=== PATIENT | female | born 1980 | race Two or more races ===

== ENCOUNTER → 2020-02-16 12:53 | Outpatient (BNVA) | payer OTHER, SELFPAY | PROVIDERS: PCP Nurse Practitioner; Visit Provider Physician Assistant | DX: Z76.89 Persons encountering health services in other specified circumstances (principal) ==

== ENCOUNTER → 2020-02-29 08:09 | Outpatient (BNVA) | payer OTHER, SELFPAY | PROVIDERS: PCP Nurse Practitioner; Visit Provider Surgery | DX: Z76.89 Persons encountering health services in other specified circumstances (principal) ==

== ENCOUNTER 2020-03-01 09:46 | Outpatient (REF) | payer OTHER, SELFPAY ==
--- NOTE | 2020-03-01 09:56 | ECG_ITS ---
Test Reason : CP Blood Pressure : / mmHG Vent. Rate : 071 BPM Atrial Rate : 071 BPM P-R Int : 162 ms QRS Dur : 068 ms QT Int : 372 ms P-R-T Axes : 080 056 031 degrees QTc Int : 404 ms Normal sinus rhythm Low voltage QRS Borderline ECG No previous ECGs available Referred By: Chava Lord Electronically Signed By:CHUCK JOHNSON MD
--- NOTE | 2020-03-01 10:35 | XR_ITS ---
EXAMINATION: XR CHEST CLINICAL INFORMATION: Morbid obesity COMPARISON: None TECHNIQUE: 2 views of the chest were obtained. FINDINGS: No significant abnormality is noted involving the heart, lungs, mediastinum, bony thorax or soft tissues. XR/XR chest 2V IMPRESSION: No acute disease.
[2020-03-01 11:15] LABS: MANUAL DIFF FLAG NO
[2020-03-01 11:34] LABS: Estimated Average Glucose 103 mg/dL; Hemoglobin A1c % 5.2 %
[2020-03-01 11:37] LABS: Basophils Percent Auto 0.3 % (0-2); Eosinophils Absolute Auto 0.1 X10*3/uL (0.0-0.4); Eosinophils Percent Auto 0.9 % (0-4); Hematocrit 43.6 % (37-47); Hemoglobin 14.7 g/dl (12.0-16.0); Imm Gran Abs Auto 0.03 X10*3/uL (0.00-0.03); Imm Gran Pct Auto 0.3 % (0.0-0.4); Lymphocytes Absolute Auto 2.1 X10*3/uL (1.2-4.9); Lymphocytes Percent Auto 23.4 % (20-40); Mean Corpuscular HGB Conc 33.7 g/dl (31.0-35.0); Mean Corpuscular Hemoglobin 31.7 pg (27.0-33.0); Mean Corpuscular Volume 94.2 fL (80-98); Mean Platelet Volume 10.4 fL (9.4-12.3); Monocytes Absolute Auto 0.6 X10*3/uL (0.1-1.2); Monocytes Percent Auto 6.5 % (2-11); Neutrophils Percent Auto 68.6 % (45-73); Platelet Count 315 X10*3/uL (160-400); Red Blood Count 4.63 X10*6/uL (4.20-5.50); Red Cell Distribution Width 12.5 % (11.0-16.0); White Blood Count 8.8 X10*3/uL (4.8-10.8)
[2020-03-01 11:49] LABS: Alanine Aminotransferase 28 U/L (0-31); Albumin Level 4.2 g/dL (3.5-5.0); Alkaline Phosphatase 87 U/L (39-117); Anion Gap 14 (12-20); Aspartate Amino Transferase 20 U/L (5-31); Bilirubin Total 0.6 mg/dL (0.0-1.0); Blood Urea Nitrogen 8 mg/dL (9-16); C Reactive Protein 0.78 mg/dL (< or = 0.50); Carbon Dioxide 26 mmol/L (22-29); Chloride 104 mmol/L (96-108); Cholesterol 244 mg/dL; Estimated Glomerular Filt Rate > 60; Glucose Random 97 mg/dL (60-115); HDL Cholesterol 44 mg/dL; LDL Cholesterol Calculated 175 mg/dl; Sodium 140 mmol/L (135-145); Total Protein 7.2 g/dL (6.5-8.0); Triglycerides 127 mg/dL
[2020-03-01 12:13] LABS: Ferritin 51 ng/mL (10-122); TSH reflex Free T4 1.61 mIU/mL (0.32-4.0); Vitamin D 25-OH Total 6.5 ng/mL (>30)
[2020-03-01 12:24] LABS: Folate 8.3 ng/mL (> or = 4.0); Vitamin B12 266 pg/mL (200-900)
[2020-03-02 06:17] LABS: Insulin Level Total 19.6 uIU/mL
[2020-03-02 17:21] LABS: Calcium (PTHI) 9.1 mg/dL (8.6-10.2); PTHI 73 pg/mL (14-64)
[2020-03-03 20:27] LABS: Zinc 72 mcg/dL (60-130)
[2020-03-05 11:47] LABS: Vitamin B1 8 nmol/L (8-30)
[2020-03-07 13:12] LABS: Vitamin A 52 mcg/dL (38-98)
== END 2020-03-01 09:47 | disposition home or self-care (01) ==
LOC: HO.LAB 09:46
PROVIDERS: PCP Nurse Practitioner; Visit Provider Surgery
DX: R07.9 Chest pain, unspecified (principal); E66.01 Morbid (severe) obesity due to excess calories
CPT/HCPCS: 36415; 71046; 80053; 80061; 82306; 82607; 82728; 82746; 83036; 83525; 83970; 84425; 84443; 84590; 84630; 85025; 86140; 93005

== ENCOUNTER → 2020-03-07 10:19 | Outpatient (BNVA) | payer OTHER, SELFPAY | PROVIDERS: PCP Nurse Practitioner; Visit Provider Physician Assistant ==

== ENCOUNTER 2020-03-13 08:00 | Outpatient (REF) | payer OTHER, SELFPAY ==
--- NOTE | 2020-03-13 08:05 | US_ITS ---
EXAMINATION: US COMPLETE ABDOMEN WITH LIVER ELASTOGRAPHY CLINICAL INFORMATION: Awcvexfa-vc-bezzdx obesity due to excess calories. COMPARISON: None. TECHNIQUE: Real-time imaging of the abdominal viscera. Noninvasive ultrasound liver fibrosis assessment is performed using Greg ElastPQ point quantification shear wave elastography (pSWE) with a 5 MHz transducer. Multiple elastography samples are obtained. FINDINGS: PANCREAS: Normal. The visualized pancreatic head and body are normal in appearance. The remainder of the pancreas is obscured from visualization by the overlying bowel gas. ABDOMINAL AORTA: The proximal, middle, and distal aortic segments are normal in caliber. INFERIOR VENA CAVA: Visualized portions are normal. LIVER: The liver demonstrates normal size, contour and increased echogenicity. No focal lesion or intrahepatic biliary duct dilatation. The right lobe measures 16.4 cm in length. The left lobe measures 10.2 cm in length. There is hepatopedal flow in the main portal vein on Doppler exam. Shear wave elastography provides a median stiffness of 1.27 m/s (reference: normal median stiffness is 0.81 - 1.22 m/s). The IQR/median stiffness to assess sampling precision is 0.19 (reference: optimal IQR/median stiffness is under 0.3). GALLBLADDER: The gallbladder has been surgically removed. COMMON BILE DUCT: Normal in caliber measuring 0.45 cm in diameter. RIGHT KIDNEY: Normal. No hydronephrosis. No renal calculi or focal parenchymal lesions. The kidney measures 11.0 cm in maximum dimension. LEFT KIDNEY: There is normal cortical thickness with hypertrophy, particularly in the midpole. There is an anechoic cyst in the midpole measuring 1.1 x 1.4 x 2.1 cm. The kidney measures 12.4 cm in maximum dimension. SPLEEN: Normal. The spleen measures 10.5 cm in maximum dimension. FREE FLUID: None. US/US abdomen comp w elastography IMPRESSION: Hepatic steatosis without focal lesion. Hypertrophied column of Zechariah with a cyst in the midpole of the left kidney. Cholecystectomy. Elastography: Aelzkh-qs-tqff fibrosis.
--- NOTE | 2020-03-13 08:05 | FL_ITS ---
EXAMINATION: XR GI SERIES CLINICAL INFORMATION: Obesity COMPARISON: None TECHNIQUE: Upper GI was performed using thin and thick barium and effervescent granules FINDINGS: Esophagus is normal-appearing. No hernia or reflux is seen. The stomach and duodenum are normal-appearing. No ulcer, focal thickening, mass or stricture is seen. FLUOROSCOPY TIME: 0.6 minutes DOSE AREA PRODUCT: 7.4 chavez per centimeter squared. Total dose 30 mgy. 19 saved fluoroscopic images. FL/FL upper GI series IMPRESSION: Unremarkable examination.
== END 2020-03-13 08:01 | disposition home or self-care (01) ==
LOC: HO.US 08:00
PROVIDERS: PCP Nurse Practitioner; Visit Provider Surgery
DX: Z01.818 Encounter for other preprocedural examination (principal); E66.01 Morbid (severe) obesity due to excess calories; K21.9 Gastro-esophageal reflux disease without esophagitis
CPT/HCPCS: 74240; 76705; 76981

== ENCOUNTER → 2020-03-14 10:00 | Outpatient (BNVA) | payer OTHER, SELFPAY | PROVIDERS: PCP Nurse Practitioner; Visit Provider Physician Assistant ==

== ENCOUNTER 2020-03-20 07:54 | Outpatient (REF) | payer OTHER, SELFPAY ==
[2020-03-21 10:27] LABS: H Pylori Breath Test NOT DETECTED (NOT DETECTED)
== END 2020-03-20 07:55 | disposition home or self-care (01) ==
LOC: CF 07:54
PROVIDERS: PCP Nurse Practitioner; Visit Provider Surgery
DX: E66.01 Morbid (severe) obesity due to excess calories (principal); Z11.0 Encounter for screening for intestinal infectious diseases
CPT/HCPCS: 83013; 99211

== ENCOUNTER → 2020-03-22 08:18 | Outpatient (BNVA) | payer OTHER, SELFPAY | PROVIDERS: PCP Nurse Practitioner; Visit Provider Surgery ==

== ENCOUNTER → 2020-03-24 08:25 | Outpatient (BNVA) | payer OTHER, SELFPAY | PROVIDERS: PCP Nurse Practitioner; Visit Provider Dietitian, Registered ==

== ENCOUNTER → 2020-04-13 08:14 | Outpatient (BNVA) | payer OTHER, SELFPAY | PROVIDERS: PCP Nurse Practitioner; Visit Provider Dietitian, Registered ==

== ENCOUNTER → 2020-04-19 08:12 | Outpatient (BNVA) | payer OTHER, SELFPAY | PROVIDERS: PCP Nurse Practitioner; Visit Provider Surgery ==

== ENCOUNTER → 2020-05-05 08:48 | Outpatient (BNVA) | payer OTHER, SELFPAY | PROVIDERS: PCP Nurse Practitioner; Visit Provider Physician Assistant ==

== ENCOUNTER → 2020-05-09 13:20 | Outpatient (BNVA) | payer OTHER, SELFPAY | PROVIDERS: PCP Nurse Practitioner; Visit Provider Dietitian, Registered ==

== ENCOUNTER → 2020-05-15 08:12 | Outpatient (BNVA) | payer OTHER, SELFPAY | PROVIDERS: PCP Nurse Practitioner; Visit Provider Surgery ==

== ENCOUNTER → 2020-05-19 10:13 | Outpatient (BNVA) | payer OTHER, SELFPAY | PROVIDERS: PCP Nurse Practitioner; Visit Provider Surgery ==

== ENCOUNTER 2020-05-25 06:05 | Inpatient (IN) | payer OTHER, SELFPAY ==
[2020-05-22 09:15] LABS: MANUAL DIFF FLAG NO
[2020-05-22 09:17] LABS: Basophils Percent Auto 0.4 % (0-2); Eosinophils Absolute Auto 0.1 X10*3/uL (0.0-0.4); Eosinophils Percent Auto 1.3 % (0-4); Hematocrit 43.1 % (37-47); Hemoglobin 14.6 g/dl (12.0-16.0); Imm Gran Abs Auto 0.03 X10*3/uL (0.00-0.03); Imm Gran Pct Auto 0.4 % (0.0-0.4); Lymphocytes Absolute Auto 2.1 X10*3/uL (1.2-4.9); Lymphocytes Percent Auto 27.3 % (20-40); Mean Corpuscular HGB Conc 33.9 g/dl (31.0-35.0); Mean Corpuscular Hemoglobin 31.9 pg (27.0-33.0); Mean Corpuscular Volume 94.3 fL (80-98); Mean Platelet Volume 10.8 fL (9.4-12.3); Monocytes Absolute Auto 0.6 X10*3/uL (0.1-1.2); Monocytes Percent Auto 7.2 % (2-11); Neutrophils Absolute Auto 4.9 X10*3/uL (2.0-8.3); Neutrophils Percent Auto 63.4 % (45-73); Platelet Count 314 X10*3/uL (160-400); Red Blood Count 4.57 X10*6/uL (4.20-5.50); Red Cell Distribution Width 12.2 % (11.0-16.0); White Blood Count 7.7 X10*3/uL (4.8-10.8)
[2020-05-22 09:33] LABS: Prothrombin Time 12.1 SEC (10.8-13.0)
[2020-05-22 09:36] LABS: Partial Thromboplastin Time 41.4 SEC (24.1-38.0)
[2020-05-22 09:48] LABS: Alanine Aminotransferase 15 U/L (0-31); Albumin Level 4.2 g/dL (3.5-5.0); Alkaline Phosphatase 69 U/L (39-117); Anion Gap 10 (12-20); Aspartate Amino Transferase 15 U/L (5-31); Bilirubin Total 0.4 mg/dL (0.0-1.0); Blood Urea Nitrogen 13 mg/dL (9-16); C Reactive Protein 0.21 mg/dL (< or = 0.50); Carbon Dioxide 27 mmol/L (22-29); Chloride 107 mmol/L (96-108); Cholesterol 178 mg/dL; Estimated Glomerular Filt Rate > 60; Glucose Random 96 mg/dL (60-115); HDL Cholesterol 33 mg/dL; LDL Cholesterol Calculated 130 mg/dl; Sodium 140 mmol/L (135-145); Total Protein 6.9 g/dL (6.5-8.0); Triglycerides 79 mg/dL
[2020-05-22 09:55] LABS: Estimated Average Glucose 103 mg/dL; Hemoglobin A1c % 5.2 %
[2020-05-22 10:10] LABS: TSH reflex Free T4 0.94 uIU/mL (0.32-4.0)
[2020-05-23 09:27] LABS: Insulin Level Total 9.3 uIU/mL
[2020-05-23 09:40] VITALS: BMI 39.1
--- NOTE | 2020-05-24 11:50 | HO.ANESPROP2 ---
Documented by User: Riri Diegoney 05/24/20 11:52 HPI - Anesthesia Eval Consult details Narrative: 39yo F for Gastrectomy Sleeve PMFSH Active Problems Active Problems: All Active Problems (Updated 04/10/20 @ 20:05 by Chava Lord MD) Constipation (Acute) Vitamin B12 deficiency (Acute) Vitamin D deficiency (Acute) Morbid obesity (Acute) Past Medical History Medical History Morbid obesity Family History Family History Mother No problems noted. Father Hypertension Diabetes Sister No problems noted. Sister No problems noted. Sister No problems noted. Sister No problems noted. Brother No problems noted. Brother No problems noted. Son No problems noted. Son No problems noted. Daughter No problems noted. 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 If so, by whom?: No Advance Directives: No Advance Directives Information Provided: No Advance Directives on File: No Recently lost weight without trying: No Meds Allergies Allergy/AdvReac Type Severity Reaction Status Date / Time No Known Allergies Allergy Verified 05/15/20 09:24 Exam Exam Date and Time: May 24, 2020 1150 Height,Weight and Vital Signs: Height 5 ft 2 in Weight 97.069 kg Pertinent Lab Results Pertinent Lab Results: Laboratory Tests 05/22/20 05/22/20 05/22/20 08:32 08:32 08:32 WBC RBC Hgb Hct MCV MCH MCHC RDW Plt Count MPV Immature Gran % (Auto) Neut % (Auto) Lymph % (Auto) [place] % (Auto) Eos % (Auto) Baso % (Auto) Lymph # (Auto) [place] # (Auto) Eos # (Auto) Baso # (Auto) Abs Immat Gran (auto) Absolute Neuts (auto) Absolute Nucleated RBC Nucleated RBC % (auto) PT INR APTT Sodium 140 Potassium 4.0 Chloride 107 Carbon Dioxide 27 Anion Gap 10 L BUN 13 D Creatinine 0.76 Estim Creat Clear Calc TNP Estimated GFR > 60 Random Glucose 96 Estimat Average Glucose 103 Hemoglobin A1c % 5.2 Total Insulin 9.3 Calcium 9.0 Total Bilirubin 0.4 AST 15 ALT 15 Alkaline Phosphatase 69 D C-Reactive Protein 0.21 Total Protein 6.9 Albumin 4.2 Triglycerides 79 Cholesterol 178 D LDL Cholesterol, Calc 130 HDL Cholesterol 33 D TSH 0.94 Blood Type Antibody Screen 05/22/20 05/22/20 05/22/20 08:37 08:37 08:37 WBC 7.7 RBC 4.57 Hgb 14.6 Hct 43.1 MCV 94.3 MCH 31.9 MCHC 33.9 RDW 12.2 Plt Count 314 MPV 10.8 Immature Gran % (Auto) 0.4 Neut % (Auto) 63.4 Lymph % (Auto) 27.3 [place] % (Auto) 7.2 Eos % (Auto) 1.3 Baso % (Auto) 0.4 Lymph # (Auto) 2.1 [place] # (Auto) 0.6 Eos # (Auto) 0.1 Baso # (Auto) 0.0 Abs Immat Gran (auto) 0.03 Absolute Neuts (auto) 4.9 Absolute Nucleated RBC 0.000 Nucleated RBC % (auto) 0.0 PT 12.1 INR 1.0 APTT 41.4 H Sodium Potassium Chloride Carbon Dioxide Anion Gap BUN Creatinine Estim Creat Clear Calc Estimated GFR Random Glucose Estimat Average Glucose Hemoglobin A1c % Total Insulin Calcium Total Bilirubin AST ALT Alkaline Phosphatase C-Reactive Protein Total Protein Albumin Triglycerides Cholesterol LDL Cholesterol, Calc HDL Cholesterol TSH Blood Type A Positive Antibody Screen NEGATIVE Narrative Narrative: EKG Vent. Rate : 071 BPM Atrial Rate : 071 BPM P-R Int : 162 ms QRS Dur : 068 ms QT Int : 372 ms P-R-T Axes : 080 056 031 degrees QTc Int : 404 ms Normal sinus rhythm Low voltage QRS Borderline ECG No previous ECGs available Assessment and Plan Assessment Anesthesia Assessment: Chart Reviewed Documented by User: Brent Lorenz 05/25/20 07:13 PMFSH Past Medical History Medical History Morbid obesity Family History Family History Mother No problems noted. Father Hypertension Diabetes Sister No problems noted. Sister No problems noted. Sister No problems noted. Sister No problems noted. Brother No problems noted. Brother No problems noted. Son No problems noted. Son No problems noted. Daughter No problems noted. 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 If so, by whom?: No Advance Directives: No Advance Directives Information Provided: No Advance Directives on File: No Recently lost weight without trying: No Meds Allergies Allergy/AdvReac Type Severity Reaction Status Date / Time No Known Allergies Allergy Verified 05/15/20 09:24 Exam Airway Mallampati Class: III TM Dist: >3cm Neck ROM: Full Loose/Missing/Broken Teeth: No Heart: rrr+[id number] Lungs: cta b/l Assessment and Plan Assessment Anesthesia Assessment: Anesthesia Plan Discussed, PAT Visit and Chart Reviewed Final Anesthetic Review NPO: Yes ASA Class: II Final Preanesthetic Review: No Changes in Pt Med Stat, Meds/Allgs Chart Reviewed, Consent Obtained/Reviewed and Anes Risks/Benef Reviewed Patient Risk: Intermediate Procedure Risk: Low Assessment/Block/Sedation in SS: Assess/Block/Sedation-SS Anesthetic Plan Anesthetic Plan: GA and Agree w/ Assess. and Plan Disposition: Standard PACU
--- NOTE | 2020-05-24 18:09 | MHC.SHP ---
Pre-Procedural Eval Section A The patient is an INPATIENT: Yes The History & Physical has been completed within 30 days and I have reviewed it.: Yes Section B Chief Complaint: Morbid severe obesity Details of Present Illness: Obesity Relevant Family History (Specify if Yes): No Relevant Social History: None Present Medications: see Short Stay Collaborative assessment Medical History: No relevant PMH History of Previous Operations: No relevant previous surgery Allergies: Allergies Allergy/AdvReac Type Severity Reaction Status Date / Time No Known Allergies Allergy Verified 05/15/20 09:24 Review of Systems Sugical H&P ROS: Negative: Constitution, Cardiovascular, Respiratory, Neurological, Psychiatric, Hem-Onc, Allergic/Immunologic, Gastrointestinal, Genitourinary, Musculoskeletal, Integumentary, Endocrine and Eyes/Ears/Nose/Throat Exam Surgical H&P Exam: Normal: HEENT, Normal: Heart, Normal: Lungs, Normal: Extremities, Normal: Abdomen, Normal: Skin and Normal: Neurological Plan Diagnosis/Plan: Unchanged I have reviewed the history and physical and performed a pertinent physical examination on my patient. No changes have occurred unless specified.
[2020-05-25] VITALS (12 sets, daily range): BP systolic 107–147; BP diastolic 54–83; PULSE 68–86; RESP 12–20; TEMP 36–36.6; O2SAT 92–100
[2020-05-25 06:46] LABS: COVID-19 Test Negative (Negative)
[2020-05-25] MEDS: Lactated Ringers 1,000 ML 999 ML IV (07:10)
[2020-05-25] MEDS: Lactated Ringers 1,000 ML 100 ML IVCONT (07:27)
--- NOTE | 2020-05-25 10:01 | P.DS_ITS ---
DS: Providers Provider Date of Service: 05/26/20 Date of admission: 05/25/20 06:05 Primary care physician: Cassandra Schmidt NP DS: Medications Discharge Medications Home Medications: Previous Rx's Medication Instructions Recorded cholecalciferol (vitamin D3) 125 125 mcg PO DAILY #30 cap 03/06/20 mcg (5,000 unit) capsule mecobalamin (vitamin B12) 1,000 1,000 mcg SUBLINGUAL DAILY #30 tab 03/06/20 mcg disintegrating tablet,sublingual docusate sodium 100 mg capsule 100 mg PO DAILY #30 cap 04/10/20 ondansetron HCl 4 mg tablet 4 mg PO Q12H #20 tab 05/15/20 pantoprazole 40 mg tablet,delayed 40 mg PO DAILY #30 tab 05/15/20 release polyethylene glycol 3350 17 gram 17 g PO DAILY #14 ea 05/15/20 oral powder packet sucralfate 100 mg/mL oral 10 ml PO BID #400 ml 05/15/20 suspension DS: Summary Time Spent with Patient Time attestation: ADMITTING DIAGNOSIS: morbid obesity, vitamin deficiencies DISCHARGE DIAGNOSIS: same, s/p laparoscopic sleeve gastrectomy PAST SURGICAL HISTORY: lap cholecystectomy PROCEDURE: upper endoscopy, laparoscopic sleeve gastrectomy and gastropexy DISCHARGE SUMMARY: History of Present Illness: The patient is a 39 year-old woman with a BMI of 42.6 kg/m2 and associated co- morbidities as described above. The patient had extensive work-up,lost 23.9 lbs preoperatively and was electively scheduled for laparoscopic, possible open sleeve gastrectomy and gastropexy. Risks and complications of the surgery were discussed with the patient in advance, particularly the possibility of , pulmonary embolism, anastomotic leak, bleeding, bowel injury, GERD, cardiac, renal or pulmonary complications. The patient understood all the risks and was in agreement with the surgical plan. Hospital Course: The patient underwent an uneventful laparoscopic sleeve gastrectomy with gastropexy on the day of admission. Postoperatively, the patient was transferred to the surgical floor. The patient was on IV Acetaminophen and IV dilaudid for pain control. Patient was started on bariatric phase 1 diet POD #0. On postoperative day one, the patient was feeling well without nausea, vomiting, fevers, or tachycardia. The patient had some mild incisional pain. The abdomen was soft. On the morning of postoperative day one, the patient was continued on 1 ounce of water or ice every half hour. During the first day, the patient did fairly well, having some incisional pain, but able to ambulate adequately and to tolerate liquids well. Since the patient is doing well, we decided that the patient was ready to be discharged. The patient was given instructions to follow-up with me next week and to call my office for any fever over 101, persistent abdominal pain, nausea, vomiting, GERD, symptoms of DVT such as calf tenderness, or leg swelling, or pulmonary embolism such as chest pain or shortness of breath. The patient was also instructed to drink 40-60 ounces of liquids per day using the 1-ounce cups. The patient was given prescription for Tylenol for pain, Zofran prn for nausea, and pantoprazole and carafate. The patient was encouraged to ambulate and use the incentive spirometer. The patient was allowed to shower, but no baths, and encouraged to stay active at home. All of these instructions were given to the patient personally. All questions were answered and the patient understood all instructions, the instructions were also given to the patient in print. Total time spent providing and/or coordinating discharge services: 15 Discharge coordination time: Less than 30 minutes Physical Exam Vital Signs: Vital Signs: Last Vital Signs Temp 97.5 F 05/25/20 09:56 Pulse 78 05/25/20 09:56 Resp 12 05/25/20 09:56 BP 110/55 L 05/25/20 09:56 Pulse Ox 100 05/25/20 09:56 Body Mass Index 39.1 DS: Data Data Completed and Pending Pending studies at discharge: Pending at discharge 05/25/20 09:11 Surgical [PTH] Routine Labs on day of discharge: Laboratory Results - last 24 hr 05/25/20 06:13 COVID-19 ([facility]) Negative COVID-19 Clin Com See Note Discharge Plan Discharge Anticipated Discharge Date/Time: 05/26/20 10:57 Patient Disposition: Home, Self-Care Referrals: Cassandra Schmidt NP [Primary Care Provider] - Discharge Medications: Continued docusate sodium [Colace] 100 mg capsule 100 mg PO DAILY Qty: 30 RF: 2 ondansetron HCl [Zofran] 4 mg tablet 4 mg PO Q12H PRN (Reason: Nausea And Vomiting) RF: 0 pantoprazole 40 mg tablet,delayed release (DR/EC) 40 mg PO DAILY Qty: 30 RF: 2 sucralfate 100 mg/mL suspension 10 ml PO BID Qty: 400 RF: 2 Discontinued cholecalciferol (vitamin D3) 125 mcg (5,000 unit) capsule 125 mcg PO DAILY Qty: 30 RF: 2 mecobalamin (vitamin B12) 1,000 mcg tablet,disintegrating 1,000 mcg sublingual DAILY Qty: 30 RF: 2 Discharge Orders: Discharge Order (Routine); Ordered 05/26/20 Ordered By: Chava Lord Diet: other Activity on Discharge: No heavy lifting Stand Alone Forms: Patient Portal Discharge page Activity Restrictions/Additional Instructions: No tub baths, sex or returning to work until discussed at first post op appointment. No exercise, alcohol, tobacco or illegal drug use. Continue to use incentive spirometer hourly while awake. Walk in home for 5- 10 minutes every 2 hours during the first week. Continue phase 1 diet today and start phase 2 diet tomorrow morning. Follow all instructions in the bariatric handbook and call with any questions. Care Plan Goals: weight loss Health Concerns: morbid obesity Plan of Treatment: see discharge instructions Assessment: Pt is stable POD#1 from laparoscopic sleeve gastrectomy and is being discharged home. Discharge Date/Time: 05/26/20 13:48
--- NOTE | 2020-05-25 10:12 | PM.OP ---
Brief Operative Note Date of Service: 05/25/20 Pre-op diagnosis: Morbid obesity with comorbidities (see below) Post-op diagnosis: same Procedure: INITIAL PATIENT BMI ON PRESENTATION AT OUR OFFICE: 44.3 kg/m2 LAST BMI BEFORE SURGERY: 39.8 kg/m2 COMORBIDITIES: liver steatosis, liver fibrosis The patient participated in an intensive weekly lifestyle intervention and exercise program during which the patient has lost between the initial office visit and the last preoperative visit 24.7lbs, or 10.2% of initial actual body weight. The patient met the BMI-criteria for bariatric surgery based on the BMI on initial presentation. The patient should not be penalized for achieving such weight loss because it is not sustainable long-term without surgical intervention and it was achieved in preparation for bariatric surgery under my direction and based on my published research ([email or web address] and [email or web address]) that a 10% preoperative weight loss improves long-term weight loss after surgery and reduces perioperative complications. Insurance carriers such as [employer] [place] have endorsed my recommendations and have included in their policies criteria to include a 10% preoperative weight loss requirement. PROCEDURE: Esophago-gastroscopy, laparoscopic repair of incarcerated diaphragmatic hernia, laparoscopic lysis of adhesions, laparoscopic sleeve gastrectomy and laparoscopic gastropexy INDICATIONS: This is a 39 year-old female who was electively scheduled for laparoscopic, possibly open sleeve gastrectomy. The risks and complications of the procedure were discussed with the patient in advance, particularly the possibility of ; pulmonary embolism; staple line leak; bleeding; GERD; cardiac, pulmonary, or renal complications; as well as long-term problems such as insufficient weight loss, vitamin deficiency, strictures, or ulcers. The patient understood all the risks, and was in agreement to proceed with surgery. DESCRIPTION OF PROCEDURE: After informed consent was obtained from the patient, the patient was given preoperative antibiotics, and was transferred to the operating room. After successful induction of general anesthesia, pneumatic compressive devices were placed on both lower extremities. An upper endoscopy was performed next. The oropharynx and esophagus appeared to be within normal limits. There was a diaphragmatic hernia present of moderate size consistent with the findings of the preoperative upper GI. The stomach was entered. Then after all fluid and air were suctioned and the stomach was fully decompressed, the scope was withdrawn and secured in the mid esophagus. The patient was then prepped and draped in the usual sterile manner, and abdominal access was established at the right upper quadrant with the Kathie technique. A 12 mm blunt port was inserted, and the abdomen was insufflated with CO2 to a pressure of 15 mmHg. Under direct visualization, additional ports were placed, specifically two 5 mm Versi-step ports to the left upper quadrant, and a 5 mm Versi-Step port to the right upper quadrant. 1% lidocaine plan was used to infiltrate all port sites as well as all fascia defects. Using the EndoClose suture passer device, I placed a #1 Polysorb tie across the falciform ligament in order to retract it up against the abdominal wall and prevent injury of the ligament with our instruments during the procedure. Following that, the patient was placed in a steep reverse Trendelenburg position. An additional 5 mm port was placed to the right flank for the Mediflex retractor that was used to retract the left lobe of the liver. The gastro-esophageal fat pad was opened with the ultrasonic device (Thunderbeat, Olympus) and the anterior esophagus and hiatus were exposed. The angle of His was opened with the ultrasonic device the fundus of the stomach from any diaphragmatic and splenic attachments. I then opened the gastrocolic ligament between the transverse colon and the greater curvature of the stomach with the ultrasonic device to enter the lesser sac and facilitate the ligation of the short gastric vessels. I started at a mid-point along the greater curvature and using the Thunderbeat, all short gastric vessels were divided all the way to the angle of His until the left jessica was completely dissected at its entirety. I then divided the gastro-colic ligament distally to a distance of about 3-4 cm proximal to the esophagus. The stomach was then divided transversely with one Endo BRENDA-45 purple, one BRENDA-45 orange and three BRENDA-60 articulating orange loads using the AEON stapler and loads. Every effort was made that the gastric sleeve had a tubular shape and an even caliber throughout. Once the sleeve resection was completed, the staple line of the gastric sleeve was reinforced with Hemoclips. The resected stomach was retrieved without difficulty from the Kathie port. A gastropexy was then performed in order to prevent postoperative GERD and partial gastric volvulus. Several interrupted 2.0 Surgidac sutures were placed between the sleeve's staple line and the previously divided greater omentum and gastro-colic ligament using the Endo-Stitch device. An upper endoscopy was performed. There was no narrowing at the GE junction. The scope was easily advanced all the way to the pylorus which was clearly visualized. There was no narrowing anywhere and the sleeve's caliber was even throughout. The sleeve's staple line was inspected and there was no evidence of ischemia, bleeding or dehiscence. At that point the gastroscope was withdrawn from the patient?s mouth while we were decompressing the bowel and the stomach from any remaining air. I looked into the lesser sac to see how the sleeve was situating and it was situating well. There was no bleeding from the staple line, spleen, or short gastric vessels. The Mediflex retractor was removed, and the undersurface of the liver was inspected and there was no bleeding. The patient was placed in supine position. I closed the fascial defect of the 12 mm port site with a figure of eight #1 Polysorb suture. Then 100 cc 0.25 % Marcaine plain with 10 mg of Dexamethasone were used to infiltrate the fascial closure as well as all skin incisions. At this point, the abdomen was deflated, all ports were removed under direct vision, and no bleeding was noted from any of the port sites. The skin incisions were irrigated with saline and were closed with 4-0 absorbable monofilament sutures. Steri-Strips and OpSites were used to cover all incisions. The patient was extubated and was transferred in stable condition to the recovery room for further care. I was present and performed all mack parts of the procedure. Tao Paredes was the marketing support assistant. There were no residents to assist with this case. Marcus Lord MD, PhD, FACS Surgeon: Chava Lord MD Anesthesia: GETA, local and other (TAP block) Computer Training Specialist: Aditi Paredes Estimated blood loss (mL): 10 IV fluids (mL): 2,500 Urine output (mL): 0 (No Bray to record) Pathology: other (Stomach) Condition: stable Disposition: PACU
[2020-05-25] MEDS: Famotidine/PF 20 MG/2 ML VIAL IVPUSH ×2 (10:16→20:18)
--- NOTE | 2020-05-25 10:19 | P.PNGS_ITS ---
Subjective Subjective Date of Service: 05/26/20 Interval history: Patient has mild incisional pain. Was able to ambulate and use the incentive spirometer. Had some nausea and vomiting Physical Exam Vital Signs: Vital Signs: Last Vital Signs Temp 97.5 F 05/25/20 09:57 Pulse 86 05/25/20 10:11 Resp 18 05/25/20 10:11 BP 115/61 05/25/20 10:11 Pulse Ox 99 05/25/20 10:11 Body Mass Index 39.1 GI: Inspection: Yes normal to inspection and Yes incision (dry, clean and intact) Extrem: Right lower extremity: normal to inspection (no calf tenderness) Left lower extremity: normal to inspection (no calf tenderness) Progress Note: A&P Assessment and plan (1) Obesity: Status: Acute (2) BMI 39.0-39.9,adult: Status: Acute (3) S/P laparoscopic sleeve gastrectomy: Status: Acute Assessment and Plan: 39 year old Female was admitted 05/25/2020 with morbid obesity and comorbidities. Problem 1: s/p laparoscopic sleeve gastrectomy, gastropexy and lysis of adhesions Status: Doing well Plan: Check am labs, If OK, will begin phase 1 bariatric diet and re- assess later (4) Steatosis, liver: Status: Acute (5) Liver fibrosis: Status: Acute Fall Risk Details Current Medications: Current Medications Generic Name Dose Route Start Last Admin Trade Name Freq PRN Reason Stop Dose Admin Famotidine 20 mg 05/25/20 10:03 05/25/20 10:16 Famotidine/Pf 20 Mg/2 Ml Vial IVPUSH 20 mg BID HANG Administration Fentanyl 50 mcg 05/25/20 07:13 Fentanyl Citrate/Pf 100 Mcg/2 Ml Vial IVPUSH Q5M PRN Pain, Moderate (Pain Scale 4-6 Hydromorphone HCl 0.5 mg 05/25/20 07:13 Hydromorphone Hcl 0.5 Mg/0.5 Ml Syringe IVPUSH Q5M PRN Pain, Severe (Pain Scale 7-10) Lactated Ringer's 1,000 mls @ 100 mls/hr 05/25/20 06:15 05/25/20 07:27 Lr IVCONT 100 mls/hr .Q10H HANG Administration Promethazine HCl 12.5 mg/ 50.5 mls @ 202 mls/hr 05/25/20 07:13 Sodium Chloride IV ONCE PRN Nausea and Vomiting Ondansetron HCl 4 mg 05/25/20 07:13 Ondansetron Hcl 4 Mg/2 Ml Vial IVPUSH ONCE PRN Nausea and Vomiting Oxycodone HCl 10 mg 05/25/20 07:13 Oxycodone Hcl Immed Release 5 Mg Tablet PO ONCE PRN Pain, Mild (Pain Scale 1-3) Time Spent With Patient Time: Total time spent is greater than 50% in coordination of care (as documented) at patient's floor/unit and/or counseling patient: Time with patient: less than 15 minutes
[2020-05-25 10:30] LABS: Hematocrit 41.9 % (37-47); Hemoglobin 14.1 g/dl (12.0-16.0)
[2020-05-25 11:00] LABS: Anion Gap 17 (12-20); Blood Urea Nitrogen 8 mg/dL (9-16); Calcium 8.4 mg/dL (8.4-10.2); Carbon Dioxide 19 mmol/L (22-29); Chloride 107 mmol/L (96-108); Creatinine Clr Calc Pharmacy 115.7; Estimated Glomerular Filt Rate > 60; Glucose Random 112 mg/dL (60-115); Potassium 3.9 mmol/L (3.3-5.1); Sodium 139 mmol/L (135-145)
[2020-05-25] MEDS: Lactated Ringers 1,000 ML 125 ML IVCONT ×2 (11:33→20:18)
[2020-05-25] MEDS: ceFAZolin Sodium/Dextrose,Iso 2 GM/50 ML PIGGYBACK IV (14:02)
[2020-05-25] MEDS: ondansetron HCL 4 MG/2 ML VIAL IVPUSH (18:22)
[2020-05-25] MEDS: HYDROmorphone HCl 0.5 MG/0.5 ML SYRINGE 0.25 MG IVPUSH (20:19)
[2020-05-26] MEDS: ondansetron HCL 4 MG/2 ML VIAL IVPUSH ×2 (02:13→10:36)
[2020-05-26] MEDS: HYDROmorphone HCl 0.5 MG/0.5 ML SYRINGE 0.25 MG IVPUSH (02:13)
[2020-05-26] MEDS: Lactated Ringers 1,000 ML 125 ML IVCONT ×2 (02:16→10:31)
[2020-05-26 04:00] VITALS: BP 128/70; PULSE 72; RESP 16; TEMP 37.2; O2SAT 97
[2020-05-26 05:32] LABS: MANUAL DIFF FLAG NO
[2020-05-26 05:41] LABS: Basophils Percent Auto 0.1 % (0-2); Hematocrit 39.9 % (37-47); Hemoglobin 13.6 g/dl (12.0-16.0); Imm Gran Abs Auto 0.05 X10*3/uL (0.00-0.03); Imm Gran Pct Auto 0.4 % (0.0-0.4); Lymphocytes Percent Auto 7.8 % (20-40); Mean Corpuscular HGB Conc 34.1 g/dl (31.0-35.0); Mean Corpuscular Hemoglobin 31.9 pg (27.0-33.0); Mean Corpuscular Volume 93.4 fL (80-98); Monocytes Absolute Auto 0.8 X10*3/uL (0.1-1.2); Monocytes Percent Auto 6.2 % (2-11); Neutrophils Absolute Auto 10.9 X10*3/uL (2.0-8.3); Neutrophils Percent Auto 85.5 % (45-73); Platelet Count 318 X10*3/uL (160-400); Red Blood Count 4.27 X10*6/uL (4.20-5.50); Red Cell Distribution Width 12.1 % (11.0-16.0); White Blood Count 12.8 X10*3/uL (4.8-10.8)
[2020-05-26 06:07] LABS: Anion Gap 17 (12-20); Blood Urea Nitrogen 4 mg/dL (9-16); Calcium 8.6 mg/dL (8.4-10.2); Carbon Dioxide 17 mmol/L (22-29); Chloride 109 mmol/L (96-108); Creatinine Clr Calc Pharmacy 126.3; Estimated Glomerular Filt Rate > 60; Glucose Random 98 mg/dL (60-115); Potassium 3.8 mmol/L (3.3-5.1); Sodium 139 mmol/L (135-145)
[2020-05-26 07:13] VITALS: O2SAT 98
[2020-05-26 08:00] VITALS: BP 140/75; PULSE 88; RESP 16; TEMP 36.1; O2SAT 98
--- NOTE | 2020-05-26 08:26 | MHC.CM.PN ---
PATIENT LIVES WITH SPOUSE AND FAMILY. SHE IS INDEPENDENT WITH HER ADLS. NO DME OR VNA SERVICES. SHE IS HOPING TO RETURN HOME TODAY WITH NO NEED FOR SERVICES. SHE REPORTS THAT SURGEON WILL RETURN THIS AFTERNOON TO ASSESS HER ABILITY TO RETURN HOME OR REMAIN ANOTHER NIGHT. CASE MANAGEMENT FOLLOWING IN THE EVENT THAT PATIENT HAS ANY DC NEEDS. SPOUSE WILL PROVIDE TRANSPORT HOME.
[2020-05-26] MEDS: Famotidine/PF 20 MG/2 ML VIAL IVPUSH (09:07)
--- NOTE | 2020-05-26 10:13 | HO.POSTANES ---
Post Anesthesia Evaluation Post Anesthesia Evaluation Vital Signs: Vital Signs Temp Pulse Resp BP Pulse Ox 05/26/20 08:00 96.9 F 88 16 140/75 H 98 05/26/20 07:13 98 05/26/20 04:00 99 F 72 16 128/70 97 05/25/20 23:18 97 F 78 18 147/80 H 96 Anesthesia: General Endotracheal-GETA Mental Status: Awake Pain Control: Satisfactory Nausea/Vomiting: None Hydration: Adequate Anesthesia-Related Issues: No Anes. Related Issues
[2020-05-26 11:22] VITALS: BP 143/83; PULSE 103; RESP 18; TEMP 36.4; O2SAT 98
--- NOTE | 2020-05-26 12:10 | MHC.CM.PN ---
PATIENT IS DISCHARGED HOME WITH NO SERVICES. RN AWARE OF PLAN.
== END 2020-05-26 13:48 | disposition home or self-care (01) | DRG 403 ==
LOC: HO.SSSA 09:58 → HO.S3 10:35
PROVIDERS: Physician Assistant; Admitting Provider Surgery; PCP Nurse Practitioner; Visit Provider Surgery
PROC: 0DB64Z3 Excision of Stomach, Percutaneous Endoscopic Approach, Vertical (ICD-10-PCS; CPT 43845; principal; 2020-05-25 07:30)
DX: E66.01 Morbid (severe) obesity due to excess calories (principal); K74.00 Hepatic fibrosis, unspecified; K44.0 Diaphragmatic hernia with obstruction, without gangrene; K76.0 Fatty (change of) liver, not elsewhere classified; Z20.822 Contact with and (suspected) exposure to COVID-19; Z68.39 Body mass index [BMI] 39.0-39.9, adult; Z79.899 Other long term (current) drug therapy
CPT/HCPCS: 36415; 80048; 80053; 80061; 83036; 83525; 84443; 85014; 85018; 85025; 85610; 85730; 86140; 86850; 86900; 87635; 88307; 88342; 99024; A4649; J0131; J0690; J1100; J1170; J2250; J2405; J3010

== ENCOUNTER → 2020-05-31 08:11 | Outpatient (BNVA) | payer OTHER, SELFPAY | PROVIDERS: PCP Nurse Practitioner; Visit Provider Surgery | DX: E66.9 Obesity, unspecified (principal); Z68.37 Body mass index [BMI] 37.0-37.9, adult | CPT/HCPCS: 99212 ==

== ENCOUNTER → 2020-06-30 08:05 | Outpatient (BNVA) | payer OTHER, SELFPAY | PROVIDERS: PCP Nurse Practitioner; Visit Provider Surgery | DX: E66.9 Obesity, unspecified (principal); Z68.36 Body mass index [BMI] 36.0-36.9, adult | CPT/HCPCS: 99212 ==

== ENCOUNTER → 2020-07-14 11:04 | Outpatient (BNVA) | payer OTHER, SELFPAY | PROVIDERS: PCP Nurse Practitioner; Visit Provider Physician Assistant ==

== ENCOUNTER 2021-04-28 17:17 | Emergency (ER) | payer OTHER, SELFPAY ==
--- NOTE | ~2021-04-28 | XR_ITS ---
EXAMINATION: XR HIP, RIGHT CLINICAL INFORMATION: Pain COMPARISON: None TECHNIQUE: Frontal view the pelvis with coned frontal and frog-leg lateral views of the right hip. FINDINGS: Bones are normal anatomic alignment. Both femoral heads are well-seated within their respected acetabula. No cortical disruption or trabecular irregularity to suggest underlying fracture. Minimal degenerative changes with small osteophyte formation both hip joints. Sacroiliac joints grossly unremarkable. Unremarkable bowel gas pattern. XR/XR hip RT w PEL1V IMPRESSION: No acute bony abnormality. Minimal degenerative change.
[2021-04-28 17:26] VITALS: BP 137/81; PULSE 79; RESP 18; TEMP 36.6; O2SAT 99; BMI 31.2
--- NOTE | 2021-04-28 19:18 | ED.LOWEXIN ---
HPI - Extremity Injury (Lower) General Chief Complaint: Extremity Injury, Lower Stated Complaint: severe hip pain Time Seen by Provider: 04/28/21 18:56 Source: patient Mode of arrival: ambulatory Limitations: no limitations History of Present Illness HPI Narrative: 40-year-old female here with reports of right hip pain for 1 month worsened today with waking with no known injury or trauma. No radiation of pain. No associated numbness, tingling, weakness of the distal extremity. Patient has not tried any [id number] medications for this pain. Related Data Home Medications Medication Instructions Recorded Confirmed ondansetron HCl 4 mg tablet 4 mg PO Q12H PRN 05/25/20 05/25/20 (Zofran) Previous Rx's Medication Instructions Recorded docusate sodium 100 mg capsule 100 mg PO DAILY #30 cap 04/10/20 (Colace) pantoprazole 40 mg tablet,delayed 40 mg PO DAILY #30 tab 05/15/20 release sucralfate 100 mg/mL oral 10 ml PO BID #400 ml 05/15/20 suspension cholecalciferol (vitamin D3) 50 50 mcg PO DAILY #20 cap 06/07/ mcg (2,000 unit) capsule docusate sodium 100 mg capsule 100 mg PO DAILY #30 cap 07/15/20 (Colace) acetaminophen 325 mg tablet 650 mg PO Q4H PRN #20 tab 04/28/21 (Tylenol) cyclobenzaprine 10 mg tablet 10 mg PO TID PRN #10 tab 04/28/21 Allergies Allergy/AdvReac Type Severity Reaction Status Date / Time No Known Allergies Allergy Verified 05/31/20 08:25 Review of Systems Review of Systems: Yes all other systems are reviewed and are negative Constitutional: Constitutional: Reports no additional constitutional complaints, Denies body ache(s), Denies chills, Denies fever(s), Denies headache(s) and Denies weakness Eyes: Eyes: Reports no additional eye complaints and Denies change in vision ENT: Reports system reviewed and no additional complaints, except as documented, Denies dizziness, Denies headache(s), Denies nasal congestion, Denies nasal discharge and Denies neck pain Cardiovascular: Cardiovascular: Reports no additional cardiovascular complaints, Denies chest pain, Denies leg edema and Denies dyspnea Respiratory: Respiratory: Reports no additional respiratory complaints, Denies cough and Denies dyspnea Gastrointestinal: Gastrointestinal: Reports no additional gastrointestinal complaints, Denies abdominal pain, Denies diarrhea, Denies nausea and Denies vomiting Genitourinary: Genitourinary: Reports no additional female genitourinary complaints and Denies urinary incontinence Musculoskeletal: Musculoskeletal: Reports no additional musculoskeletal complaints, Denies back pain, Reports arthralgias, Denies joint swelling, Denies neck pain, Denies numbness and Denies tingling Integumentary/Breasts: Skin/Breast: Reports system reviewed and no additional complaints, except as docu and Denies rash Neurologic: Reports system reviewed and no additional complaints, except as documented, Denies Abnormal speech present, Denies dizziness, Denies headache(s), Denies numbness, Denies tingling and Denies weakness PMFSH Past Medical History Attestation statement: The following information was validated with the patient. Source: old records reviewed and nursing notes reviewed Medical History Constipation Morbid obesity Surgical History History of sleeve gastrectomy Hx of cholecystectomy Hx of tubal ligation Family History Family History Mother No problems noted. Father Hypertension Diabetes Sister No problems noted. Sister No problems noted. Sister No problems noted. Sister No problems noted. Brother No problems noted. Brother No problems noted. Son No problems noted. Son No problems noted. Daughter No problems noted. 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) Do you presently have visiting nurse or other home services: No Alcohol intake: never Advance Directives: No Advance Directives Information Provided: No Patient : No service: No Current occupational status: unemployed Physical Exam Vital Signs: Vital Signs: Last Vital Signs Temp 98 F 04/28/21 17:26 Pulse 79 04/28/21 17:26 Resp 18 04/28/21 17:26 BP 137/81 04/28/21 17:26 Pulse Ox 99 04/28/21 17:26 BMI result Body Mass Index 31.2 Const: General: cooperative, healthy appearing, comfortable and no acute distress Orientation/consciousness: patient oriented x3 Limitations: no limitations HENMT: Head: Yes normal to inspection Ears: hearing grossly normal bilaterally General nose exam: Normal external nose present Face and sinus: Yes normal facial exam Mouth: Normal oral and palatal mucosa present Throat: Yes posterior oropharynx normal Eyes: General: appearance normal, both eyes and all related structures Pupils: Equal, round and reactive pupils present Neck: Neck: Yes normal visual inspection Chest: Chest palpation & inspection: normal inspection of the chest Resp: Effort & Inspection: normal respiratory effort Auscultation: clear to auscultation bilaterally Cardio: Rate: regular rate Rhythm: regular rhythm Peripheral pulses: Peripheral pulses 2+ throughout GI: Inspection: Yes normal to inspection Palpation (GI): Soft to palpation and nontender Auscultation: normal bowel sounds Back/Spine/Pelvis: Thoracic/Lumbar Spine: thoracic and lumbar spine normal to inspection Skin: General skin exam: no rashes or lesions noted Neuro: General: patient oriented x3, no focal motor deficits and normal sensation to monofilament Cranial nerves: Yes Equal, round and reactive pupils present Cognition (Neuro): normal cognition Speech: No Abnormal speech present Gait exam (Neuro): Normal gait present Motor exam (neuro): 5/5 motor strength present throughout Extrem: Other: Tenderness over the right lateral hip that is worsened with palpation, abduction, adduction, rotation of the hip. No obvious rotation, deformity or shortening of the hip. General: Yes normal to inspection Course Course Course Narrative: 40-year-old female here with atraumatic right hip pain for 1 month. Will check x-rays, provide analgesia and reassess 2000- x-ray show degenerative changes of the hip. patient is feeling improved after receiving some analgesia here. Will discharge her home with some medications for pain, supportive care at home and follow-up with PCP. Reviewed worrisome signs and symptoms when to return to the emergency department. Comfortable discharge home. MDM - Extremity Injury (Lower) Medical Records Attestation: I reviewed the patient's medical records. Lab Data Attestation: I reviewed the patient's lab results. Imaging Data hip xray/pelvis: Attestation: I personally reviewed and interpreted this imaging study as follows: Radiologist's impression: [address] [address] XRay Report Signed Patient: Nadine Jay MR#: [id number] : 1980 Acct:[id number] Age/Sex: 40 / F ADM Date: 04/28/21 Loc: HO.ED Attending Dr: Ordering Physician: Tonia Siddiqi NP Date of Service: 04/28/21 Procedure(s): XR hip RT w PEL1V Accession Number(s): [id number] cc: Tonia Siddiqi NP~ EXAMINATION: XR HIP, RIGHT CLINICAL INFORMATION: Pain COMPARISON: None TECHNIQUE: Frontal view the pelvis with coned frontal and frog-leg lateral views of the right hip. FINDINGS: Bones are normal anatomic alignment. Both femoral heads are well-seated within their respected acetabula. No cortical disruption or trabecular irregularity to suggest underlying fracture. Minimal degenerative changes with small osteophyte formation both hip joints. Sacroiliac joints grossly unremarkable. Unremarkable bowel gas pattern.? XR/XR hip RT w PEL1V IMPRESSION: No acute bony abnormality. Minimal degenerative change. ? Discharge Plan Discharge Clinical Impression: Osteoarthritis Patient Disposition: Home, Self-Care Instructions: Osteoarthritis (DC) Additional Instructions: heat or ice gentle stretching follow-up with your primary care doctor in 1 week for persistent symptoms Prescriptions: New acetaminophen [Tylenol] 325 mg tablet 650 mg PO Q4H PRN (Reason: pain) Qty: 20 0RF cyclobenzaprine 10 mg tablet 10 mg PO TID PRN (Reason: muscle spasm) Qty: 10 0RF No Action docusate sodium [Colace] 100 mg capsule 100 mg PO DAILY Qty: 30 2RF cholecalciferol (vitamin D3) 50 mcg (2,000 unit) capsule 50 mcg PO DAILY Qty: 20 11RF docusate sodium [Colace] 100 mg capsule 100 mg PO DAILY Qty: 30 2RF ondansetron HCl [Zofran] 4 mg tablet 4 mg PO Q12H PRN (Reason: Nausea And Vomiting) 0RF pantoprazole 40 mg tablet,delayed release (DR/EC) 40 mg PO DAILY Qty: 30 2RF sucralfate 100 mg/mL suspension 10 ml PO BID Qty: 400 2RF Referrals: Cassandra Schmidt NP [Primary Care Provider] - 1 week Print Language: Northern Irish
[2021-04-28] MEDS: Ketorolac Tromethamine 30 MG/ML VIAL IM (19:30)
== END 2021-04-28 20:40 | disposition home or self-care (01) ==
PROVIDERS: Emergency Provider Emergency Medicine Emergency Medical Services; PCP Nurse Practitioner
DX: M16.11 Unilateral primary osteoarthritis, right hip (principal); M25.551 Pain in right hip
CPT/HCPCS: 73502; 96372; 99283; 99284; J1885

== ENCOUNTER 2021-12-17 10:29 | Emergency (ER) | payer OTHER, SELFPAY ==
--- NOTE | ~2021-12-17 | XR_ITS ---
EXAMINATION: XR HIP, LEFT CLINICAL INFORMATION: Pain with week. COMPARISON: None TECHNIQUE: AP upright, AP supine, and frog-leg lateral views of the left hip. FINDINGS: Bones and soft tissues appear unremarkable. No fracture identified. Alignment is anatomic. Hip joint space is maintained. XR/XR hip LT w PEL1V IMPRESSION: Normal plain film examination of the left hip.
[2021-12-17 10:32] VITALS: BP 142/80; PULSE 76; RESP 18; TEMP 36.6; O2SAT 97; BMI 32.9
[2021-12-17 11:01] LABS: UPreg QC Valid YES; Urine Pregnancy NEGATIVE (NEGATIVE)
== END 2021-12-17 12:28 | disposition left against medical advice (07) ==
PROVIDERS: Emergency Provider Emergency Medicine; PCP Nurse Practitioner
DX: M79.605 Pain in left leg (principal); M25.552 Pain in left hip
CPT/HCPCS: 73502; 81025; 99282; 99283

== ENCOUNTER 2023-10-03 21:10 | Emergency (ER) | payer MEDICAID, SELFPAY ==
--- NOTE | 2023-10-03 | ECG_ITS ---
Test Reason : PALPATATIONS Blood Pressure : / mmHG Vent. Rate : 064 BPM Atrial Rate : 064 BPM P-R Int : 156 ms QRS Dur : 066 ms QT Int : 388 ms P-R-T Axes : 060 014 010 degrees QTc Int : 400 ms Normal sinus rhythm Normal ECG When compared with ECG of 01-MAR-2020 09:58, No significant change was found Referred By: Generic ED Physician Electronically Signed By:PELON HARDY
--- NOTE | ~2023-10-03 | XR_ITS ---
EXAMINATION: XR CHEST CLINICAL INFORMATION: Palpitations. Arm pain. COMPARISON: Chest radiograph dated 03/01/2020. TECHNIQUE: Frontal view of the chest was obtained. FINDINGS: The heart is normal in size. The lungs are clear. Pleural spaces are clear. No pneumothorax. No acute osseous abnormality. Surgical clips overlie the abdomen. XR/XR chest 1V IMPRESSION: No acute cardiopulmonary disease.
[2023-10-03 21:33] VITALS: BP 120/78; PULSE 69; RESP 14; TEMP 36.3; O2SAT 98; BMI 32.9
[2023-10-03 22:03] LABS: MANUAL DIFF FLAG NO
[2023-10-03 22:04] LABS: Basophils Percent Auto 0.2 % (0-2); Eosinophils Percent Auto 0.3 % (0-4); Hematocrit 39.3 % (37.0-47.0); Hemoglobin 13.8 g/dl (12.0-16.0); Imm Gran Abs Auto 0.03 X10*3/uL (0.00-0.03); Imm Gran Pct Auto 0.2 % (0.0-0.4); Lymphocytes Absolute Auto 1.5 X10*3/uL (1.2-4.9); Lymphocytes Percent Auto 11.4 % (20-40); Mean Corpuscular HGB Conc 35.1 g/dl (31.0-35.0); Mean Corpuscular Hemoglobin 31.6 pg (27.0-33.0); Mean Corpuscular Volume 89.9 fL (80.0-98.0); Mean Platelet Volume 9.9 fL (9.4-12.3); Monocytes Absolute Auto 0.7 X10*3/uL (0.1-1.2); Monocytes Percent Auto 5.6 % (2-11); Neutrophils Absolute Auto 10.8 x10*3/uL (2.0-8.3); Neutrophils Percent Auto 82.3 % (45-73); Platelet Count 298 X10*3/uL (160-400); Red Blood Count 4.37 X10*6/uL (4.20-5.50); Red Cell Distribution Width 12.7 % (11.0-16.0); White Blood Count 13.2 X10*3/uL (4.8-10.8)
[2023-10-03 22:11] LABS: INTERNATIONAL NORM RATIO 0.9 (0.9-1.1); Prothrombin Time 10.7 SEC (11.1-13.3)
[2023-10-03 22:14] LABS: Partial Thromboplastin Time 32.3 SEC (26.0-36.8)
[2023-10-03 22:20] LABS: Anion Gap 15 (12-20); Blood Urea Nitrogen 9 mg/dL (9-16); Calcium 9.4 mg/dL (8.4-10.2); Carbon Dioxide 19 mmol/L (22-29); Chloride 111 mmol/L (96-108); Creatinine Clr Calc Pharmacy 102.6; Estimated Glomerular Filt Rate > 60; Glucose Random 97 mg/dL (60-115); Potassium 3.6 mmol/L (3.3-5.1); Sodium 141 mmol/L (135-145)
[2023-10-03 22:28] LABS: Troponin-I High Sensitivity 5.6 ng/L (<3.5-17.0)
[2023-10-03 23:34] VITALS: BP 106/65; PULSE 56; RESP 16; TEMP 36.7; O2SAT 97
--- NOTE | 2023-10-03 23:35 | MHC.EDTECH ---
This pct assumed care of patient ,vitals taken and pt was hooked up to groundwater monitoring technician ,call nava within pt reach
--- NOTE | 2023-10-04 00:19 | ED.ARRPALP ---
HPI - Arrhythmia/Palpitations General Chief Complaint: Arrhythmia/Palpitations Stated Complaint: palpitations Time Seen by Provider: 10/04/23 00:14 Source: patient Mode of arrival: ambulatory Limitations: no limitations History of Present Illness ED Provider: akilah CRUZ narrative: Patient no significant past medical history was in nondenominational and noticed heart racing which lasted for about 5-7 minutes fell lightheaded with that and tingling in the left arm on arrival patient was in sinus rhythm no arrhythmias noticed during stay in the ER no history of similar palpitation in the past no history of significant caffeine use no syncope Related Data Home Medications ?Medication ?Instructions ?Recorded ?Confirmed ondansetron HCl 4 mg tablet 4 mg PO Q12H PRN Nausea And 05/25/20 05/25/20 (Zofran) Vomiting Previous Rx's ?Medication ?Instructions ?Recorded docusate sodium 100 mg capsule 100 mg PO DAILY #30 caps 04/10/20 (Colace) pantoprazole 40 mg tablet,delayed 40 mg PO DAILY #30 tabs 05/15/20 release sucralfate 100 mg/mL oral 10 ml PO BID #400 mL 05/15/20 suspension cholecalciferol (vitamin D3) 50 50 mcg PO DAILY #20 caps 06/07/20 mcg (2,000 unit) capsule docusate sodium 100 mg capsule 100 mg PO DAILY #30 caps 07/15/20 (Colace) acetaminophen 325 mg tablet 650 mg (2 x 325 mg) PO Q4H PRN 04/28/21 (Tylenol) pain #20 tabs cyclobenzaprine 10 mg tablet 10 mg PO TID PRN muscle spasm #10 04/28/21 tabs Allergies Allergy/AdvReac Type Severity Reaction Status Date / Time No Known Allergies Allergy Verified 10/03/23 21:37 Review of Systems Review of Systems: Yes all other systems are reviewed and are negative [facility] Past Medical History Medical History Constipation Morbid obesity Surgical History History of sleeve gastrectomy Hx of cholecystectomy Hx of tubal ligation Family History Family History Mother No problems noted. Father Hypertension Diabetes Sister No problems noted. Sister No problems noted. Sister No problems noted. Sister No problems noted. Brother No problems noted. Brother No problems noted. Son No problems noted. Son No problems noted. Daughter No problems noted. 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 Oriented X3. No acute distress. Eyes: PERRLA, No Nystagmus ENT: Pharynx normal. Oral Mucosa moist Neck: Normal inspection. Neck supple. CVS: Normal heart rate and rhythm. Pulses normal. Respiratory: No respiratory distress. Equal air entry bilateral, no wheezing/rales/rhonchi Abdomen: Soft and nontender. Bowel sounds are present, no mass palpable, no CVA tenderness Skin: Skin warm and dry. Normal skin color. Normal skin turgor. Extremities: No lower extremity edema. No calf tenderness Neuro: Oriented X 3. No motor deficit. No sensory deficit.No cerebellar signs , cranial nerves II-XII intact Medical Decision Making Medical Decision Making [facility] Narrative: Patient with 1st episode of palpitation likely SVT which lasted only for 5 minutes no arrhythmias noticed during stay in the ER labs are stable patient advised to follow with glass setter Differential Diagnosis Differential Diagnoses: The differential diagnosis associated with the presentation includes SVT/AFib/atrial flutter/PACs Admission/Observation Consideration of admission/observation: Escalation of care including admission/observation considered Lab Data [facility] Lab Attestation statement: I reviewed the patient's lab results. 10/03/23 21:59 10/03/23 21:59 Labs: Lab Results 10/03/23 Range/Units 21:59 WBC 13.2 H (4.8-10.8) X10*3/uL RBC 4.37 (4.20-5.50) X10*6/uL Hgb 13.8 (12.0-16.0) g/dl Hct 39.3 (37.0-47.0) % MCV 89.9 (80.0-98.0) fL MCH 31.6 (27.0-33.0) pg MCHC 35.1 H (31.0-35.0) g/dl RDW 12.7 (11.0-16.0) % Plt Count 298 (160-400) X10*3/uL MPV 9.9 (9.4-12.3) fL Immature Gran % (Auto) 0.2 (0.0-0.4) % Neut % (Auto) 82.3 H (45-73) % Lymph % (Auto) 11.4 L (20-40) % [place] % (Auto) 5.6 (2-11) % Eos % (Auto) 0.3 (0-4) % Baso % (Auto) 0.2 (0-2) % Lymph # (Auto) 1.5 (1.2-4.9) X10*3/uL [place] # (Auto) 0.7 (0.1-1.2) X10*3/uL Eos # (Auto) 0.0 (0.0-0.4) X10*3/uL Baso # (Auto) 0.0 (0.0-0.2) X10*3/uL Abs Immat Gran (auto) 0.03 (0.00-0.03) X10*3/uL Absolute Neuts (auto) 10.8 H (2.0-8.3) x10*3/uL Absolute Nucleated RBC 0.000 (0.0-0.012) X10*3/uL Nucleated RBC % (auto) 0.0 (0.0-0.2) /100WBC PT 10.7 L (11.1-13.3) SEC INR 0.9 (0.9-1.1) APTT 32.3 (26.0-36.8) SEC Sodium 141 (135-145) mmol/L Potassium 3.6 (3.3-5.1) mmol/L Chloride 111 H (96-108) mmol/L Carbon Dioxide 19 L (22-29) mmol/L Anion Gap 15 (12-20) BUN 9 (9-16) mg/dL Creatinine 0.70 (0.5-1.4) mg/dL Estim Creat Clear Calc 102.6 Estimated GFR > 60 Random Glucose 97 (60-115) mg/dL Calcium 9.4 D (8.4-10.2) mg/dL Troponin I High Sens 5.6 (<3.5-17.0) ng/L Independent Interpretation I performed an independent interpretation of an: EKG Interpretation: Normal sinus rhythm heart rate 64 beats per minute normal interval normal axis no acute ST T wave changes no acute ischemia Discharge Plan Discharge Clinical Impression: Palpitations Patient Disposition: Home, Self-Care Instructions: Heart Palpitations (ED) Additional Instructions: Avoid caffeine Follow with glass setter for further evaluation Report to the ER if recurrence of the episodes Prescriptions: No Action docusate sodium [Colace] 100 mg capsule 100 mg PO DAILY Qty: 30 2RF cholecalciferol (vitamin D3) 50 mcg (2,000 unit) capsule 50 mcg PO DAILY Qty: 20 11RF docusate sodium [Colace] 100 mg capsule 100 mg PO DAILY Qty: 30 2RF ondansetron HCl [Zofran] 4 mg tablet 4 mg PO Q12H PRN (Reason: Nausea And Vomiting) acetaminophen [Tylenol] 325 mg tablet 650 mg PO Q4H PRN (Reason: pain) Qty: 20 0RF cyclobenzaprine 10 mg tablet 10 mg PO TID PRN (Reason: muscle spasm) Qty: 10 0RF pantoprazole 40 mg tablet,delayed release (DR/EC) 40 mg PO DAILY Qty: 30 2RF sucralfate 100 mg/mL suspension 10 ml PO BID Qty: 400 2RF Referrals: Jacob Nava MD [Physician] - 1 week Interventions: ED Discharge Assessment Last Done: 10/04/23 00:46 Discharge Date/Time: 10/04/23 00:50 Print Language: Mohawk
[2023-10-04 00:22] VITALS: BP 127/72; PULSE 54; RESP 14; TEMP 36.9; O2SAT 97
[2023-10-04 00:46] VITALS: BP 127/72; PULSE 54; RESP 14; TEMP 36.9; O2SAT 97
== END 2023-10-04 00:50 | disposition home or self-care (01) ==
PROVIDERS: Emergency Provider Internal Medicine; PCP Nurse Practitioner
DX: R00.2 Palpitations (principal); Z79.899 Other long term (current) drug therapy
CPT/HCPCS: 36415; 71045; 80048; 84484; 85025; 85610; 85730; 93005; 99283; 99285